=== PATIENT | male | born 1980 | race Caucasian/White ===

== ENCOUNTER → 2019-04-03 | Outpatient (CLI) | payer OTHER | LOC: FIMAGING 20:51 | PROVIDERS: ATTEND Physician Assistant | DX: M79.662 Pain in left lower leg (principal) ==

== ENCOUNTER 2019-04-23 16:09 | Emergency (ER) | payer OTHER | END 2019-04-23 16:47 | disposition home or self-care (01) | LOC: CED 16:09 ==